=== PATIENT | female | born 1955 | race Caucasian/White ===

== ENCOUNTER 2022-09-10 11:48 | Emergency (ER) | payer MEDICARE, OTHER | END 2022-09-10 13:09 | disposition home or self-care (01) | LOC: JP.ED 11:48 | DX: B02.7 Disseminated zoster (principal); I10 Essential (primary) hypertension; Z88.8 Allergy status to other drugs, medicaments and biological substances; Z88.5 Allergy status to narcotic agent; Z79.899 Other long term (current) drug therapy | CPT/HCPCS: 81001; 87086; 99283 ==

== ENCOUNTER 2023-12-02 04:02 | Inpatient (IN) | payer MEDICARE, OTHER ==
[2023-12-02] MEDS ORDERED: Naloxone 0.4 MG/ML SDV IVPUSH PRN (04:20)
[2023-12-02] MEDS: Morphine 2 MG/ML SYRINGE IVPUSH ONE ×2 (04:29→04:51)
[2023-12-02] MEDS: Sodium Chloride 0.9% 500 ML IV ONE (04:33)
[2023-12-02] MEDS: Ondansetron 4 MG/2 ML SDV IVPUSH ONE (04:49)
[2023-12-02 05:01] LABS: BASOPHILS ABSOLUTE AUTO 0.05 K/uL (0.00-0.10); BASOPHILS PERCENT AUTO 0.6 % (0.1-1.3); EOSINOPHILS ABSOLUTE AUTO 0.35 K/uL (0.00-0.40); HEMATOCRIT 39.7 % (34.3-46.0); HEMOGLOBIN 13.2 g/dL (11.2-15.5); IMMATURE GRAN ABSOLUTE AUTO 0.05 K/uL (0.00-0.23); IMMATURE GRAN PERCENT AUTO 0.6 % (0.0-0.7); LYMPHOCYTES ABSOLUTE AUTO 1.25 K/uL (0.8-3.3); LYMPHOCYTES PERCENT AUTO 14.4 % (11.4-47.7); MEAN CORPUSCULAR HEMOGLOBIN 30.1 pg (31.6-35.5); MEAN CORPUSCULAR HGB CONC 33.2 g/dL (31.6-35.5); MEAN CORPUSCULAR VOLUME 90.4 fL (81.4-99.0); MONOCYTES PERCENT AUTO 5.8 % (3.3-12.6); NEUTROPHILS ABSOLUTE AUTO 6.49 K/uL (1.0-7.6); NEUTROPHILS PERCENT AUTO 74.6 % (40.0-78.1); PLATELET COUNT,PLT 252 K/uL (130-375); RED BLOOD CELL COUNT 4.39 M/uL (3.77-5.24); WHITE BLOOD CELL COUNT,WBC 8.7 K/uL (3.2-11.0)
[2023-12-02 05:16] LABS: ANION GAP 12.3 mmol/L (5.0-14.0); CALCIUM 8.6 mg/dL (8.5-10.1); CREATININE 0.8 mg/dL (0.6-1.0); EST CRCL DRUG DOSING (CG) 63.63 mL/min; POTASSIUM,K 3.3 mmol/L (3.6-5.2)
[2023-12-02] MEDS: LORazepam 2 MG/ML SDV IVPUSH ONE (05:20)
[2023-12-02] MEDS: Sodium Chloride 0.9% 1,000 ML IV SCH ×2 (05:56→17:15)
[2023-12-02] MEDS ORDERED: Dimethicone 20%/Zinc Oxide 25% 56 GM Spray Bottle TOP PRN (05:57)
[2023-12-02] MEDS ORDERED: Ondansetron 4 MG Tab.DIS PO PRN (06:14)
[2023-12-02] MEDS ORDERED: Ondansetron 4 MG/2 ML SDV IV PRN (06:14)
[2023-12-02] MEDS ORDERED: LORazepam 2 MG/ML SDV IVPUSH PRN (06:14)
[2023-12-02] MEDS: Potassium Chloride 10 MEQ in Premix Bag 1 BAG IV SCH ×2 (06:43→07:58)
[2023-12-02] MEDS: HYDROmorphone 1 MG/ML Syringe IVPUSH PRN (07:34)
[2023-12-02] MEDS: Pantoprazole 40 MG Tab.CR PO SCH (07:42)
[2023-12-02] MEDS ORDERED: fentaNYL 50 MCG/ML SDV ONE (08:53)
[2023-12-02] MEDS ORDERED: Propofol 200 MG/20 ML SDV ONE (08:53)
[2023-12-02] MEDS ORDERED: Midazolam 1 MG/ML 2 ML SDV ONE (08:53)
[2023-12-02] MEDS: Lisinopril 10 MG Tab PO SCH (08:57)
[2023-12-02] MEDS ORDERED: LORazepam 0.5 MG Tab PO PRN (10:39)
[2023-12-02] MEDS ORDERED: Bupivacaine 0.25%/EPINEPHrine 1:200,000 30 ML SDV ONE (13:28)
[2023-12-02] MEDS: ceFAZolin 2 GM in Premix Bag 1 BAG IV ONE (15:15)
[2023-12-02] MEDS: HYDROmorphone 2 MG Tab PO PRN (18:56)
[2023-12-02] MEDS: Ketorolac 30 MG/ML SDV IVPUSH PRN (20:01)
[2023-12-02] MEDS: diphenhydrAMINE 50 MG/ML SDV IVPUSH PRN (22:19)
[2023-12-03] MEDS: Acetaminophen 325 MG Tab PO PRN (07:42)
[2023-12-03] MEDS ORDERED: HYDROmorphone 0.5 MG/0.5 ML Syringe IVPUSH PRN (10:04)
[2023-12-04 05:30] LABS: HEMATOCRIT 33.4 % (34.3-46.0); HEMOGLOBIN 11.3 g/dL (11.2-15.5); MEAN CORPUSCULAR HEMOGLOBIN 30.4 pg (31.6-35.5); MEAN CORPUSCULAR HGB CONC 33.8 g/dL (31.6-35.5); MEAN CORPUSCULAR VOLUME 89.8 fL (81.4-99.0); RED BLOOD CELL COUNT 3.72 M/uL (3.77-5.24); WHITE BLOOD CELL COUNT,WBC 6.9 K/uL (3.2-11.0)
[2023-12-04 05:56] LABS: CALCIUM 8.6 mg/dL (8.5-10.1); CREATININE 0.7 mg/dL (0.6-1.0); EST CRCL DRUG DOSING (CG) 72.72 mL/min; POTASSIUM,K 3.4 mmol/L (3.6-5.2)
[2023-12-04 05:57] LABS: ANION GAP 12.4 mmol/L (5.0-14.0)
[2023-12-04] MEDS: Potassium Chloride 20 MEQ Tab.ER PO ONE (09:57)
== END 2023-12-04 14:24 | disposition home health service (06) | DRG 481 ==
LOC: JP.ED 04:02 → JP.MS 05:33 → OBSVTOIN 21:08
PROVIDERS: ADMIT Registered Nurse; ATTEND Specialist
PROC: 0QS736Z Reposition Left Upper Femur with Intramedullary Internal Fixation Device, Percutaneous Approach (ICD-10-PCS; principal; 2023-12-02 11:00)
DX: S72.142A Displaced intertrochanteric fracture of left femur, initial encounter for closed fracture (principal); K51.90 Ulcerative colitis, unspecified, without complications; F41.9 Anxiety disorder, unspecified; Z88.6 Allergy status to analgesic agent; Z79.899 Other long term (current) drug therapy; W01.0XXA Fall on same level from slipping, tripping and stumbling without subsequent striking against object, initial encounter; F90.9 Attention-deficit hyperactivity disorder, unspecified type; I10 Essential (primary) hypertension; Z88.8 Allergy status to other drugs, medicaments and biological substances; Z90.49 Acquired absence of other specified parts of digestive tract; Z88.5 Allergy status to narcotic agent; Z98.42 Cataract extraction status, left eye; Z98.41 Cataract extraction status, right eye; W18.30XA Fall on same level, unspecified, initial encounter; Y92.009 Unspecified place in unspecified non-institutional (private) residence as the place of occurrence of the external cause
CPT/HCPCS: 36415; 73502 ×2; 76000; 80048; 85025; 96361; 96374; 96375; 99283; 99284; A9270 ×3; C1713; C1776 ×2; J0690; J1170 ×5; J1885; J2060; J2250; J2270 ×2; J2704; J3010; J3480 ×2; J7030 ×3; J7040; 01230-QZ; 85027; 96365; 96366; 96376; 97110-GP; 97116-GP; 97161-GP; 97165-GO; 97535-GO; 99222; 99232; 99238; G0378; J1200

== ENCOUNTER 2024-11-16 07:40 | Day surgery (SDC) | payer MEDICARE, OTHER ==
[2024-11-16] MEDS ORDERED: ceFAZolin 2 GM in Sodium Chloride 0.9% 100 ML IV ONE (08:00)
[2024-11-16 08:12] LABS: HEMATOCRIT 43.1 % (34.3-46.0); HEMOGLOBIN 14.2 g/dL (11.2-15.5); MEAN CORPUSCULAR HEMOGLOBIN 30.7 pg (31.6-35.5); MEAN CORPUSCULAR HGB CONC 32.9 g/dL (31.6-35.5); MEAN CORPUSCULAR VOLUME 93.3 fL (81.4-99.0); RED BLOOD CELL COUNT 4.62 M/uL (3.77-5.24); WHITE BLOOD CELL COUNT,WBC 5.5 K/uL (3.2-11.0)
[2024-11-16] MEDS: Nozin Nasal Sanitizer NASBOTH ONE (08:30)
[2024-11-16] MEDS: Lactated Ringers 1,000 ML IV SCH (08:31)
[2024-11-16 08:33] LABS: A/G RATIO 1.1 (1.2-2.2); ALANINE AMINOTRANSFERASE,ALT 34 U/L (12-78); ALBUMIN 3.8 g/dL (3.4-5.0); ALKALINE PHOSPHATASE 96 U/L (46-116); ASPARTATE AMNIOTRANSFERASE,AST 25 U/L (15-37); BILIRUBIN TOTAL 1.6 mg/dL (0.2-1.0); BLOOD UREA NITROGEN,BUN 27 mg/dL (7-18); CALCIUM 9.6 mg/dL (8.5-10.1); CARBON DIOXIDE,CO2 28 mmol/L (21-32); CHLORIDE,CL 105 mmol/L (100-108); CREATININE 0.9 mg/dL (0.6-1.0); EST CRCL DRUG DOSING (CG) 55.75 mL/min; ESTIMATED GFR 68 mL/min (>60); GLUCOSE RANDOM 90 mg/dL (74-106); POTASSIUM,K 3.6 mmol/L (3.6-5.2); PROTEIN TOTAL,TP 7.4 g/dL (6.4-8.2); SODIUM,NA 141 mmol/L (140-148)
[2024-11-16] MEDS ORDERED: Dexamethasone 4 MG/ML SDV ONE (09:00)
[2024-11-16] MEDS ORDERED: Succinylcholine 200 MG/10 ML MDV ONE (09:00)
[2024-11-16] MEDS ORDERED: fentaNYL 250 MCG/5 ML SDV ONE ×2 (09:00→09:38)
[2024-11-16] MEDS ORDERED: Neostigmine Methylsulfate 10 MG/10 ML MDV ONE (09:00)
[2024-11-16] MEDS ORDERED: Propofol 200 MG/20 ML SDV ONE (09:00)
[2024-11-16] MEDS ORDERED: Rocuronium 50 MG/5 ML Vial ONE (09:00)
[2024-11-16] MEDS ORDERED: Ondansetron 4 MG/2 ML SDV ONE (09:00)
[2024-11-16] MEDS ORDERED: Glycopyrrolate 0.2 MG/ML 5 ML MDV ONE (09:00)
[2024-11-16] MEDS: ceFAZolin 2 GM in Premix Bag 1 BAG IV ONE (09:14)
[2024-11-16] MEDS: Bupivacaine 0.5% 50 ML MDV ONE (10:11)
[2024-11-16] MEDS ORDERED: Phenylephrine 1% 10 MG/ML SDV ONE (10:38)
[2024-11-16] MEDS ORDERED: Sodium Chloride 0.9% 10 ML ONE (10:38)
[2024-11-16] MEDS ORDERED: Ketorolac 30 MG/ML SDV ONE (11:07)
[2024-11-16] MEDS ORDERED: Acetaminophen/HYDROcodone 325-5 MG Tab PO PRN (11:13)
[2024-11-16] MEDS ORDERED: Ondansetron 4 MG Tab.DIS PO PRN (11:13)
[2024-11-16] MEDS ORDERED: Morphine 2 MG/ML SYRINGE IVPUSH PRN (11:13)
[2024-11-16] MEDS ORDERED: Sodium Chloride 0.9% 1,000 ML IV SCH (11:15)
[2024-11-16] MEDS ORDERED: traMADol 50 MG Tab PO PRN (11:26)
[2024-11-16] MEDS ORDERED: HYDROmorphone 2 MG Tab PO PRN (11:27)
[2024-11-16] MEDS: HYDROmorphone 2 MG Tab PO PRN (12:00)
[2024-11-16] MEDS: ceFAZolin 1 GM in Premix Bag 1 BAG IV SCH (16:06)
[2024-11-16] MEDS ORDERED: Ketorolac 15 MG/ML SDV IVPUSH SCH (18:00)
[2024-11-17] MEDS ORDERED: Lisinopril 20 MG Tab PO SCH (09:00)
== END 2024-11-16 17:33 | disposition home or self-care (01) ==
LOC: JP.SDS 07:40 → JP.MS 11:13 → JP.SDS 17:33
PROVIDERS: ATTEND Specialist
DX: T84.84XA Pain due to internal orthopedic prosthetic devices, implants and grafts, initial encounter (principal); S76.012A Strain of muscle, fascia and tendon of left hip, initial encounter; I10 Essential (primary) hypertension; K21.9 Gastro-esophageal reflux disease without esophagitis; Y83.8 Other surgical procedures as the cause of abnormal reaction of the patient, or of later complication, without mention of misadventure at the time of the procedure
CPT/HCPCS: 20680; 27299; 36415; 80053; 85027; 97116; 97161; A9270; C1713; J0330; J0665; J0689; J0690; J1100; J1596; J1885; J2371; J2405; J2704; J2710; J3010; J7120; J3490